=== PATIENT | female | born 2000 | race Caucasian/White ===

== ENCOUNTER 2023-10-01 16:35 | Emergency (ER) | payer SELFPAY ==
[~2023-10-01] VITALS: Ht 175.3 cm; Wt 68.2 kg
[2023-10-01 16:45] VITALS: TEMP 98
[2023-10-01 18:19] LABS: COLLECTION METHOD CLEAN CATCH
[2023-10-01 18:39] LABS: URINE APPEARANCE CLEAR (CLEAR/HAZY); URINE BLOOD 3+ (NEGATIVE); URINE COLOR YELLOW (YELLOW); URINE GLUCOSE NEGATIVE (NEGATIVE); URINE KETONE NEGATIVE (NEGATIVE); URINE NITRATE NEGATIVE (NEGATIVE); URINE PROTEIN(semi-quant) NEGATIVE (NEGATIVE)
[2023-10-01 19:19] LABS: BASO # 0.1 K/mm3 (0.0-0.2); BASO % 0.5 % (0.0-2.0); EOS # 0.1 K/mm3 (0.0-0.7); EOS % 0.8 % (0.0-4.0); GRAN # 6.2 K/mm3 (1.4-6.5); GRAN % 66.9 % (42.2-75.2); HEMATOCRIT 37.5 % (35.0-45.0); HEMOGLOBIN 13.5 g/dl (12.0-15.0); LYMPH # 2.3 K/mm3 (1.2-3.4); MEAN CELL VOLUME 87 fl (80.0-95.0); MEAN CORPUSCULAR HEMOGLOBIN 32 pg (26-32); MEAN CORPUSCULAR HGB CONC 36 g/dl (33.0-37.0); MEAN PLATELET VOLUME 10.7 fl (7.4-10.4); MONO # 0.6 K/mm3 (0.1-0.6); MONO % 6.6 % (1.7-9.3); PLATELET COUNT 211 K/mm3 (130-400); RED BLOOD COUNT 4.29 M/mm3 (4.10-5.30); REDCELL DISTRIBUTION WIDTH-CV 11.9 % (11.5-14.5)
[2023-10-01 19:40] LABS: ALBUMIN 4.5 gm/dL (3.5-5.0); BILIRUBIN,TOTAL 0.5 mg/dL (0.2-1.2); CALCIUM 9.3 mg/dL (8.4-10.2); CREATININE, serum 0.72 mg/dL (0.57-1.11); TOTAL PROTEIN 7.1 gm/dL (6.2-8.1)
[2023-10-01 19:50] LABS: POTASSIUM 4.2 mmol/L (3.5-4.5)
[2023-10-01 20:14] VITALS: BP 120/66; PULSE 74
== END 2023-10-01 20:14 | disposition home or self-care (01) ==
LOC: COL.ER 16:35
PROVIDERS: Nurse Practitioner
DX: O20.9 Hemorrhage in early pregnancy, unspecified (principal); Z3A.00 Weeks of gestation of pregnancy not specified

== ENCOUNTER → 2023-10-02 | Outpatient (CLI) | payer SELFPAY | LOC: COL.RAD 05:04 | DX: O46.90 Antepartum hemorrhage, unspecified, unspecified trimester (principal) ==

== ENCOUNTER 2024-06-03 14:23 | Inpatient (IN) | payer MEDICAID ==
[2024-06-03] VITALS (22 sets, daily range): BP systolic 110–199; BP diastolic 59–85; PULSE 59–97; TEMP 97.8–98.4
[~2024-06-03] VITALS: Ht 172.7 cm; Wt 89.5 kg
--- NOTE | 2024-06-03 14:25 | NUR ---
PATIENT ARRIVED ON UNIT. PATIENT AMBULATES TO LABOR ROOM. PATIENT BREATHING THROUGH CONTRACTIONS. PATIENT REPORTS CONTRACTIONS HAVE BEEN 5 MINS APART FOR THE LAST COUPLE OF HOURS. PATIENT DENIES LEAKING OF FLUID OR BREATHING.PATIENT REPORTS SHE HAD A MEMBRANE SWEEP YESTERDAY.PATIENT REPORTS BABY IS MOCING NORMALLY. EFM AND TOCO INITIATED. SPO2 INITIATED.
[2024-06-03] MEDS ORDERED: LR 1,000 ML IV PRN (15:15)
[2024-06-03] MEDS ORDERED: Penicillin G Potassium 5,000,000 UNITS in NS 100 ML IV ONE (15:15)
[2024-06-03] MEDS ORDERED: LR 1,000 ML IV SCH (15:15)
--- NOTE | 2024-06-03 15:36 | NUR ---
1536 FELIX ARAMBULA AT BEDSIDE. PROCEDURE EXPLAINED AND CONSENT OBTAINED. PATIENT SETUP FOR EPIDRUAL. DIFFICULTY TRACING FHR DUE TO MATERNAL POSITION. SPO2 MONITOR INITIATED. 1543 TEST DOSE ADMINISTERED. 1545 PATIENT ASSISTED BACK TO WEDGE LEFT POSITION IN BED.
[2024-06-03 15:53] LABS: BASO % 0.2 % (0.0-2.0); EOS % 0.1 % (0.0-4.0); GRAN # 14.3 K/mm3 (1.4-6.5); HEMOGLOBIN 12.7 g/dl (12.5-16.0); LYMPH # 1.6 K/mm3 (1.2-3.4); LYMPH % 9.6 % (20.0-51.0); MEAN CELL VOLUME 84 fl (80.0-100.0); MEAN CORPUSCULAR HEMOGLOBIN 30 pg (27-31); MEAN CORPUSCULAR HGB CONC 36 g/dl (33.0-37.0); MEAN PLATELET VOLUME 12.4 fl (7.4-10.4); MONO % 5.7 % (1.7-9.3); PLATELET COUNT 163 K/mm3 (130-400); RED BLOOD COUNT 4.25 M/mm3 (4.10-5.30); REDCELL DISTRIBUTION WIDTH-CV 12.5 % (11.5-14.5)
[2024-06-03 15:58] LABS: HEMATOCRIT 35.7 % (37.0-47.0)
[2024-06-03] MEDS ORDERED: diphenhydrAMINE 50 MG/ML 1 ML VIAL IV PRN (16:00)
[2024-06-03] MEDS ORDERED: Naloxone 0.4 MG/ML VIAL IV PRN ×2 (16:00→18:30)
[2024-06-03] MEDS ORDERED: LR 500 ML IV PRN (16:00)
[2024-06-03] MEDS ORDERED: Ondansetron 4 MG/2 ML VIAL IV PRN (16:00)
[2024-06-03] MEDS ORDERED: diphenhydrAMINE 25 MG CAP PO PRN (16:00)
[2024-06-03] MEDS ORDERED: ePHEDrine 50 MG/10 ML VIAL IV PRN (16:00)
[2024-06-03] MEDS ORDERED: LR 1,000 ML IV ONE (16:00)
[2024-06-03] MEDS ORDERED: ROPivacaine PF 0.2% 200 ML IV ONE (16:04)
[2024-06-03] MEDS ORDERED: PRENATAL TABLET PO (16:11)
--- NOTE | 2024-06-03 17:21 | NUR ---
AT BEDSIDE. SVE @7043 1 WITH BS. AROM @ 1723 CLEAR FLUID. FHR TRACING REVIEWED. PLAN OF CARE UPDATED. PLAN TO INITIATE PUSHING EFFORTS AND WILL REMAIN ON THE UNIT.
--- NOTE | 2024-06-03 17:28 | NUR ---
PUSHING EFFORT INITIATED. THIS RN AT BEDSIDE MONITORING FETUS AND MOTHER.
[2024-06-03 17:32] LABS: TRICYCLIC ANTIDEPRESS URINE NEGATIVE (NEGATIVE)
--- NOTE | 2024-06-03 17:45 | NUR ---
1745 CALLED TO BEDSIDE. PATIENT SETUP FOR DELIVERY. 1749 OF VIABLE MALE . PLACED ON MOTHER'S ABDOMEN. CARE OF GIVEN TO NURSERY RN. 1753 OF PLACENTA. PITOCIN BOLUS INITIATED AT 333ML/HR PER POLICY AND PROTOCOL. REPAIR OF BILATERAL LABIAL LACERATIONS AND 1ST DEGREE VAGIAL LACERATION BY DR. ZUNIGA. FUNDUS FIRM AND BLEEDIN WNL.
[2024-06-03] MEDS ORDERED: Oxytocin 10 UNITS/ML VIAL IM ONE (18:13)
--- NOTE | 2024-06-03 18:13 | NUR ---
DUE TO DIFFICULTY WITH IV OCCLUSION,INTRAVENOUS PITOCIN STOPPED AND 10 UNITS OF PITOCIN GIVEN IM PER ORDERS FROM .
--- NOTE | 2024-06-03 18:20 | NUR ---
Epidural pump off at this time.
[2024-06-03] MEDS ORDERED: Loratadine 10 MG TAB PO PRN (18:30)
[2024-06-03] MEDS ORDERED: Ibuprofen 600 MG TAB PO SCH (18:30)
[2024-06-03] MEDS ORDERED: oxyCODONE 5 MG TAB PO PRN (18:30)
[2024-06-03] MEDS ORDERED: Mag/Al Hydrox/Simeth Susp 30 ML CUP PO PRN (18:30)
[2024-06-03] MEDS ORDERED: Magnes Hydrox (MOM) 80 MG/ML 30 ML CUP PO PRN (18:30)
[2024-06-03] MEDS ORDERED: Acetaminophen 500 MG TAB PO SCH (18:30)
[2024-06-03] MEDS ORDERED: Measles/Mumps/Rubella Virus Vaccine Live w Diluent 0.5 ML VIAL SQ SCH (18:30)
[2024-06-03] MEDS ORDERED: Witch Hazel 50% Pads Bulk TUB TP PRN (18:30)
[2024-06-03] MEDS ORDERED: Phenylephrine/Mineral Oil/Petrolatum 57 GM TUBE RC PRN (18:30)
[2024-06-03] MEDS ORDERED: Tdap Vaccine 0.5 ML SYRINGE IM SCH (18:30)
[2024-06-03] MEDS ORDERED: Penicillin G Potassium 2,500,000 UNITS in NS 100 ML IV SCH (19:14)
--- NOTE | 2024-06-03 20:10 | NUR ---
Assisted out of bed for first time since delivery, using Sanjuana Steady. Unable to spontaneously void at this time. Muna care provided. Muna pad, ice pack, mesh underwear and clean gown provided. Transferred to room 216 per Sanjuana Steady. Note patient ambulates short distance from hallway to bed without difficulty, standby assist only.
[2024-06-03] MEDS ORDERED: traZODone 50 MG TAB PO PRN (21:00)
--- NOTE | 2024-06-03 22:10 | NUR ---
REPORT RECEIVED FROM GABRIEL QUIÑONEZ. [facility].
[2024-06-04 04:00] VITALS: BP 116/50; PULSE 95; TEMP 98.1
[2024-06-04 07:21] VITALS: BP 115/72; PULSE 71; TEMP 98.1
[2024-06-04 07:55] VITALS: BP 122/70; PULSE 120; TEMP 98
[2024-06-04] MEDS ORDERED: Sennosides/Docusate 8.6-50 MG TAB PO SCH (08:00)
[2024-06-04] MEDS ORDERED: MOTRIN 600600 MG/TAB PO (08:31)
[2024-06-04] MEDS ORDERED: Influenza Virus Vaccine, Trivalent '24-25 0.5 ML SYRINGE IM SCH (09:00)
--- NOTE | 2024-06-04 11:07 | NUR ---
Initial visit; Parents thanked Epitaxial Reactor Technician for offering congratulations and God's blessings for the of theirson. Epitaxial Reactor Technician thanked family for choosing [facility].
--- NOTE | 2024-06-04 14:08 | NUR ---
post tensioning ironworker received consult for postive Marijuana UDS in mother. ILANA spoke with RN Emerald who confirmed this. She reports parents have been appropriate with and have no concerns. ILANA spoke with Proof Technician Helper Dr. Greene who SW informed that mother was postive for Marijuana. He verbalized understanding of this. ILANA met with pt and BUZZ Burgos. ILANA verified address in [place] and phone numbers on file. Mother confirmed to have Medicaid [place] insurance and states her CM provided the # to add infant. Mother states she is not working and does not need childcare. She has a car for transportation. Parents report they both have a good support system. Mother states she is connected with [facility] through [facility]. She does not get food stamps. ILANA provided information on the Maternal and Child Health Program. Mom was interested and agreeable to have ILANA send referral. She was provided with their handout, [facility] Resource Guide, [facility] Providers, and Drug/Alcohol resources. Parents confirmed this is their first child. [facility] a provider [facility] and will establish [facility]. They have a carseat in the car, bassinet, crib, and Pack N Play for infant. They have enough diapers, wipes, and clothes for . Mother has no concerns for MH and had no prior symptoms she states. She was made aware of the positive UDS and informed ILANA she will stop doing this. Parents had no other concerns and were pleasant/cooperative with ILANA and enagaged with infant appropriately. ILANA made CPS report #[id number] for mom testing positive for Marijuana. ILANA made online referral to Maternal Child Health Program.
--- NOTE | 2024-06-04 16:10 | NUR ---
INFANT BROUGHT TO NURSERY PER PARENT REQUEST DUE TO VOMITTING EMESIS WAS CLEAR, WITH MODERATE AMOUNT OF FORMULA PRESENT. VITAL SIGNS ARE WNL AND BOWEL SOUNDS ARE PRESENT. THIS RN DISCUSSED INFANT STATUS WITH CHARGE NURSE. EDUCATION PROVIDED TO THE PARENTS TO CONTINUE FREQUENT BURPING WHEN FEEDING, USING SLOW FLOW NIPPLE, AND CONTINUING TO MONITOR AND NOTIFY THIS RN IF PARENTS NOTICE VOMITTING CONTINUES. THIS RN DISCUSSES AND EDUCATES PARENTS TAHT AT THIS TIME INFANT IS VOIDING AND HAS HAD NUMEROUS STOOLS. PARENTS EDUCATED THAT VOMITTING MAY BE A RESULT OF AMNIOTIC FLUID LEFT IN STOMACH OR REFLUX
--- NOTE | 2024-06-04 16:10 | NUR ---
INFANT BROUGHT TO NURSERY PER PARENT REQUEST DUE TO VOMITTING. VITAL SIGNS ARE WNL AND BOWEL SOUNDS WERE PRESENT. THE RN DISCUSSED PATIENT STATUS WITH CHARGE NURSE. EDUCATION PROVIDED TO THE PATIENT TO CONTINUE FREQUENT BURPING WITH FEEDINGS, USING SLOW FLOW NIPPLE, AND CONTINUE TO MONITOR AND LET THIS RN KNOW IF THEY NOTICE VMOITTING LIKE THIS CONTINUES. THIS RN DISCUSSES AND EDUCATES PATIENT THAT AT THIS TIME PATIENT IS VOIDING AND HAS HAD NUMEROUS STOOLS AND THAT VOMITTING MAY BE A RESULT OF AMNIOTIC FLUID LEFT IN STOMACH OR REFLUX.
[2024-06-04 19:00] VITALS: BP 124/70; PULSE 62; TEMP 98.9
[2024-06-05 07:37] VITALS: BP 130/69; PULSE 85; TEMP 97.8
--- NOTE | 2024-06-05 11:25 | NUR ---
ALL DC PAPERWORK AND EDUCATION/FOLLOW UP APPOINTMENTS REVIEWED AND UNDERSTOOD BY PT AND FOB. DENY FURTHER QUESTIONS OR CONCERNS. INFANT PLACED APPROPRIATELY IN CAR SEAT, STRAPS ASSESSED BY THIS RN. AMBULATORY FROM UNIT IN STABLE CONDITION.
--- NOTE | 2024-06-05 11:30 | NUR ---
THIS RN NOTIFIES PT TO LET HER KNOW I FORGOT TO ADMINISTER HER FLU SHOT PRIOR TO HER DC. SHE STATES "OH NO WORRIES AT ALL, I'LL GET IT AT THE PHARMACY SOMETIME THIS WEEK, IM MAKING JUD (FOB) GET ONE THIS WEEK ANYWAYS TOO."
== END 2024-06-05 11:25 | disposition home or self-care (01) | DRG 806 ==
LOC: LDRO 14:23 → OB 15:10 → LDR 15:10 → OB 20:20
PROVIDERS: Obstetrics & Gynecology; ADMIT Obstetrics & Gynecology
PROC: 10E0XZZ Delivery of Products of Conception, External Approach (ICD-10-PCS; principal; 2024-06-03)
PROC: 0HQ9XZZ Repair Perineum Skin, External Approach (ICD-10-PCS; 2024-06-03)
PROC: 10907ZC Drainage of Amniotic Fluid, Therapeutic from Products of Conception, Via Natural or Artificial Opening (ICD-10-PCS; 2024-06-03)
DX: O48.0 Post-term pregnancy (principal); O99.324 Drug use complicating childbirth; Z37.0 Single live birth; Z3A.40 40 weeks gestation of pregnancy; F12.90 Cannabis use, unspecified, uncomplicated; O70.0 First degree perineal laceration during delivery; O99.824 Streptococcus B carrier state complicating childbirth
CPT/HCPCS: J2540; J2590; J2795; J7120